=== PATIENT | female | born 1960 | race African-American/Black ===

== ENCOUNTER → 2017-01-11 | Outpatient (CLI) | payer BC ==
[~2017-01-11] MED LIST: ERYTHROMYCIN E3.5 G1 OPHTHALMIC; GLUCOPHAGE XR500 MG PO; LEVOTHYROXIN0.075 MG PO
== END ==
LOC: RAD 12-15 03:45 → BC 05:48
DX: Z12.31 Encounter for screening mammogram for malignant neoplasm of breast (principal)

== ENCOUNTER 2017-06-12 16:27 | Emergency (ER) | payer BC ==
[~2017-06-12] VITALS: Ht 160 cm; Wt 82.6 kg
[2017-06-12 17:59] VITALS: BP 123/61
== END 2017-06-12 18:00 | disposition home or self-care (01) ==
LOC: ER 16:27
DX: M25.561 Pain in right knee (principal); I10 Essential (primary) hypertension; E11.9 Type 2 diabetes mellitus without complications; E03.9 Hypothyroidism, unspecified; Z88.6 Allergy status to analgesic agent; Z96.651 Presence of right artificial knee joint

== ENCOUNTER → 2018-01-31 | Outpatient (CLI) | payer BC | LOC: RAD 01:24 | DX: Z12.31 Encounter for screening mammogram for malignant neoplasm of breast (principal) ==

== ENCOUNTER 2018-09-02 07:05 | Emergency (ER) | payer BC ==
[~2018-09-02] VITALS: Ht 160 cm; Wt 79.8 kg
[2018-09-02] MEDS ORDERED: ROBAXIN500 MG PO (09:44)
[2018-09-02] MEDS ORDERED: NORCO 5-325 TA1 EAC1 PO (09:44)
[2018-09-02 09:45] VITALS: BP 111/57
== END 2018-09-02 09:45 | disposition home or self-care (01) ==
LOC: ER 07:05
DX: S01.81XA Laceration without foreign body of other part of head, initial encounter (principal); I10 Essential (primary) hypertension; E03.9 Hypothyroidism, unspecified; E11.9 Type 2 diabetes mellitus without complications; Z96.651 Presence of right artificial knee joint; Z88.8 Allergy status to other drugs, medicaments and biological substances; Z88.6 Allergy status to analgesic agent; V89.2XXA Person injured in unspecified motor-vehicle accident, traffic, initial encounter; Y92.89 Other specified places as the place of occurrence of the external cause; Y93.89 Activity, other specified; Y99.8 Other external cause status

== ENCOUNTER 2018-09-05 16:15 | Emergency (ER) | payer BC ==
[~2018-09-05] VITALS: Ht 167.6 cm; Wt 61.7 kg
[~2018-09-05 16:15] MED LIST changes: +NORCO 5-325 TA1 EAC1 PO; +ROBAXIN500 MG PO
[2018-09-05 16:34] VITALS: BP 137/77
== END 2018-09-05 18:26 | disposition home or self-care (01) ==
LOC: ER 16:15
DX: Z48.00 Encounter for change or removal of nonsurgical wound dressing (principal)

== ENCOUNTER → 2019-03-06 | Outpatient (CLI) | payer BC | LOC: BC 08:36 | DX: Z12.31 Encounter for screening mammogram for malignant neoplasm of breast (principal) ==

== ENCOUNTER 2019-08-25 09:01 | Emergency (ER) | payer BC ==
[~2019-08-25] VITALS: Ht 160 cm; Wt 86.2 kg
[2019-08-25 10:20] LABS: HEMATOCRIT 32.1 % (37.0-47.0); HEMOGLOBIN 10.5 gm/dL (12.0-15.0); MCH 28.4 pg (26.0-34.0); MCHC 32.7 g/dL (28.0-37.0); PLATELET COUNT 260 thou/uL (150-400); RBC 3.69 mil/uL (4.20-5.00); RDW 19.3 % (10.5-14.5); WBC 12.6 thou/uL (4.0-11.0)
[2019-08-25 10:32] LABS: APTT 29.9 Seconds (24.5-32.8); PROTIME 10.7 Seconds (9.3-11.4)
[2019-08-25 10:35] LABS: ABSOLUTE NEUTROPHILS 10.8 thou/uL (1.4-8.2); PLATELET ESTIMATE NORMAL
[2019-08-25 10:36] LABS: ANISOCYTOSIS 1+
[2019-08-25 11:04] LABS: URINE BLOOD 1+ (Negative); URINE CLARITY CLOUDY; URINE COLOR YELLOW; URINE GLUCOSE-RANDOM* NEGATIVE (Negative); URINE KETONES 2+ (Negative); URINE LEUKOCYTES-REFLEX NEGATIVE (Negative); URINE NITRITE-REFLEX NEGATIVE (Negative); URINE PROTEIN (DIPSTICK) 2+ (Negative); URINE SPECIFIC GRAVITY >= 1.030 (1.005-1.035); URINE UROBILINOGEN 0.2 E.U./dl (0.2-1.0)
[2019-08-25 11:10] LABS: ICTOTEST (BILI CONFIRMATORY) Negative (Negative); URINE BILIRUBIN NEGATIVE (Negative)
[2019-08-25 11:24] LABS: AMORPHOUS URATES Moderate /LPF (None Seen); BACTERIA-REFLEX 1-9 Few /HPF (None Seen); CASTS None Seen /LPF (None Seen); MUCUS 0-3 Light strn/LPF (None Seen); SQUAMOUS None Seen /LPF (0-3); URINE RBC 0-2 Rare /HPF (0-2); URINE WBC-REFLEX None Seen /HPF (0-5)
[2019-08-25 11:59] LABS: ANION GAP 12 mmol/L (7-16); BUN 8 mg/dL (7-18); CALCIUM 8.6 mg/dL (8.5-10.1); CHLORIDE 95 mmol/L (98-107); CO2 24 mmol/L (21-32); GLUCOSE 211 mg/dL (74-106); SODIUM 131 mmol/L (136-145)
[2019-08-25 12:01] LABS: POTASSIUM 2.9 mmol/L (3.5-5.1)
[2019-08-25 12:05] LABS: ALBUMIN 2.9 g/dL (3.4-5.0); MAGNESIUM 1.8 mg/dL (1.8-2.4); SGOT 13 U/L (15-37); SGPT 15 U/L (30-65); TOTAL BILIRUBIN 0.4 mg/dL (0.2-1.0); TOTAL PROTEIN 7.3 g/dL (6.4-8.2); TROPONIN-I <0.06 ng/mL (<0.06)
[2019-08-25] MEDS ORDERED: POTASSIUM20 PO (13:10)
[2019-08-25 15:05] VITALS: BP 131/106
--- NOTE | 2019-08-25 15:54 | EKG ---
[facility] [place] [address] ELECTROCARDIOGRAM REPORT Name: RUBY FRANK Room #: DEP [facility]#: [id number] Admission: 08/25/19 Attend Phys: Discharge: 08/25/19 Date of : 56 Report #: [id number] THIS REPORT FOR: cc: FAM - Family physician unknown FAM - Family physician unknown Ap Davies MD [facility] THIS REPORT FOR: //name// [facility] ED Test Date: 2019-08-25 Test Time: 11:16:43 Pat Name: RUBY FRANK Department: Room: Gender: Director Strategy: [facility] : 1960 Requested By: Norbert Maldonado Order Number: [id number] MD: Ap Davies Measurements Intervals [place] Rate: 102 P: 31 OR: 126 QRS: 32 QRSD: 73 T: 13 QT: 358 QTc: 467 Interpretive Statements Sinus tachycardia Nonspecific ST and T wave abnormality Compared to ECG 04/22/2000 11:03:18 ST and T-wave abnormality now present Sinus bradycardia no longer present Electronically Signed On 08-25-2019 15:54:36 CDT by Ap Davies [email or web address] <ELECTRONICALLY SIGNED> By: Ap Davies MD, [facility] 08/25/19 1554 1116 [id number] Ap Davies MD, [facility] /EPI
== END 2019-08-25 15:05 | disposition home or self-care (01) ==
LOC: ER 09:01
PROVIDERS: Emergency Medicine
DX: R50.9 Fever, unspecified (principal); Z20.828 Contact with and (suspected) exposure to other viral communicable diseases; E03.9 Hypothyroidism, unspecified; I10 Essential (primary) hypertension; D64.9 Anemia, unspecified; J45.909 Unspecified asthma, uncomplicated; E88.09 Other disorders of plasma-protein metabolism, not elsewhere classified; E87.6 Hypokalemia; E11.9 Type 2 diabetes mellitus without complications; R42 Dizziness and giddiness; E66.9 Obesity, unspecified; Z88.1 Allergy status to other antibiotic agents; Z88.6 Allergy status to analgesic agent; Z79.899 Other long term (current) drug therapy

== ENCOUNTER → 2019-08-30 | Outpatient (CLI) | payer BC ==
[~2019-08-30] MED LIST changes: +ALTACE10 MG PO; +ASA81BEC PO; +B12 ACTIVE1000 MCG PO; +BENZONATATE200 MG PO; +BUSPAR30 MG PO; +CETIRIZINE HCL5 MG PO; +CINNAMON500 MG PO; +CLORAZEPATE DI7.5 M3 PO; +COQ-10100 MG PO; +CYPROHEPTAD2 MG/5 ML PO; +DESYREL150 MG PO; +FOLIC ACID1 MG PO; +LEVAQUIN 750 M750 MG PO; +MUCINEX600 MG PO; +POTASSIUM20 PO; +PROAIR HFA8.5 GM INH; +PROBIOTIC1 EAC7 PO; +PROTONIX40 M2 PO; +SERTRALINE HCL100 MG PO; +SIMVASTATIN80 MG PO; +SINGULAIR 10 MG10 M1 PO; +SYNTHROID100 MC1 PO; +VALACYCLOVIR500 MG PO
== END ==
LOC: LAB 11:38
PROVIDERS: ATTEND Nurse Practitioner
DX: R50.9 Fever, unspecified (principal); R06.02 Shortness of breath; R05 Cough; R53.83 Other fatigue; Z20.828 Contact with and (suspected) exposure to other viral communicable diseases

== ENCOUNTER 2019-09-01 21:32 | Inpatient (IN) | payer BC ==
[~2019-09-01] VITALS: Ht 160 cm; Wt 88.9 kg
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
[~2019-09-01 21:32] MED LIST changes: -ALTACE10 MG PO; -ASA81BEC PO; -B12 ACTIVE1000 MCG PO; -BENZONATATE200 MG PO; -BUSPAR30 MG PO; -CETIRIZINE HCL5 MG PO; -CINNAMON500 MG PO; -CLORAZEPATE DI7.5 M3 PO; -COQ-10100 MG PO; -CYPROHEPTAD2 MG/5 ML PO; -DESYREL150 MG PO; -FOLIC ACID1 MG PO; -LEVAQUIN 750 M750 MG PO; -MUCINEX600 MG PO; -PROAIR HFA8.5 GM INH; -PROBIOTIC1 EAC7 PO; -PROTONIX40 M2 PO; -SERTRALINE HCL100 MG PO; -SIMVASTATIN80 MG PO; -SINGULAIR 10 MG10 M1 PO; -SYNTHROID100 MC1 PO; -VALACYCLOVIR500 MG PO
[2019-09-01 21:35] VITALS: BP 123/75
[2019-09-01 23:35] LABS: ABSOLUTE NEUTROPHILS 6.8 thou/uL (1.4-8.2); BASOPHILS 0.8 % (0.0-2.0); EOSINOPHILS 0.8 % (0.0-3.0); HEMOGLOBIN 9.7 gm/dL (12.0-15.0); LYMPHOCYTES 12.6 % (24.0-44.0); MCH 28.6 pg (26.0-34.0); MCHC 33.4 g/dL (28.0-37.0); MCV 85.7 fL (80.0-100.0); MONOCYTES 8.6 % (1.0-8.0); PLATELET COUNT 455 thou/uL (150-400); POLYS 77.2 % (36.0-66.0); RBC 3.39 mil/uL (4.20-5.00); RDW 19.8 % (10.5-14.5); WBC 8.8 thou/uL (4.0-11.0)
[2019-09-01 23:56] LABS: ALBUMIN 2.3 g/dL (3.4-5.0); ANION GAP 11 mmol/L (7-16); BUN 15 mg/dL (7-18); CALCIUM 9.1 mg/dL (8.5-10.1); CHLORIDE 93 mmol/L (98-107); CO2 28 mmol/L (21-32); GLUCOSE 180 mg/dL (74-106); MAGNESIUM 2.4 mg/dL (1.8-2.4); SGOT 289 U/L (15-37); SGPT 168 U/L (30-65); SODIUM 132 mmol/L (136-145); TOTAL BILIRUBIN 0.5 mg/dL (0.2-1.0); TROPONIN-I <0.06 ng/mL (<0.06)
[2019-09-01 23:58] LABS: POTASSIUM 2.6 mmol/L (3.5-5.1)
[2019-09-02] VITALS (7 sets, daily range): BP systolic 129–165; BP diastolic 41–79
[2019-09-02 00:36] LABS: URINE BILIRUBIN 1+ (Negative); URINE BLOOD NEGATIVE (Negative); URINE CLARITY CLEAR; URINE COLOR YELLOW; URINE GLUCOSE-RANDOM* NEGATIVE (Negative); URINE KETONES 1+ (Negative); URINE LEUKOCYTES-REFLEX NEGATIVE (Negative); URINE NITRITE-REFLEX NEGATIVE (Negative); URINE PROTEIN (DIPSTICK) 2+ (Negative); URINE SPECIFIC GRAVITY 1.025 (1.005-1.035); URINE UROBILINOGEN 0.2 E.U./dl (0.2-1.0)
[2019-09-02 00:40] LABS: ICTOTEST (BILI CONFIRMATORY) Positive (Negative)
[2019-09-02 00:42] LABS: BACTERIA-REFLEX 1-9 Few /HPF (None Seen); CRYSTALS None Seen /LPF (None Seen); HYALINE CASTS 0-3 Few /LPF (None Seen); MUCUS 4-6 Moderate strn/LPF (None Seen); SQUAMOUS 4-10 Moderate /LPF (0-3); TRANSITIONAL EPITHEL CELL 0-3 Few /LPF (None Seen); URINE RBC None Seen /HPF (0-2); URINE WBC-REFLEX 0-5 Rare /HPF (0-5)
[2019-09-02 00:53] LABS: APTT 32.3 Seconds (24.5-32.8); D-DIMER 2.59 ug/mLFEU (0.19-0.50); INR 1.1; PROTIME 11.5 Seconds (9.3-11.4)
--- NOTE | 2019-09-02 05:36 | NUR ---
REPORT GIVEN TO NURSE ON 3 FLOOR
[2019-09-02] MEDS ORDERED: SYNTHROID100 MC1 PO (05:42)
[2019-09-02 05:58] LABS: HEMATOCRIT 28.5 % (37.0-47.0); HEMOGLOBIN 9.4 gm/dL (12.0-15.0); MCH 28.5 pg (26.0-34.0); MCV 86.5 fL (80.0-100.0); RBC 3.29 mil/uL (4.20-5.00); RDW 20.5 % (10.5-14.5); WBC 8.8 thou/uL (4.0-11.0)
[2019-09-02 09:58] LABS: CALCIUM 8.2 mg/dL (8.5-10.1); CREATININE 0.8 mg/dL (0.6-1.0)
[2019-09-02 10:06] LABS: POTASSIUM 6.9 mmol/L (3.5-5.1)
[2019-09-02 10:20] LABS: CHOLESTEROL 122 mg/dL (<200); HDL CHOLESTEROL 12 mg/dL (>40); LDL CHOLESTEROL 82 mg/dL (<100); TC:HDL 10.2 Ratio (Not establshd); TRIGLYCERIDE 143 mg/dL (<150); VLDL 29 mg/dL (<40)
--- NOTE | 2019-09-02 16:28 | NUR ---
PT CARE ASSUMED APPROX 0700. ASSESSMENT CHARTED. PT DENIES PAIN AND SOA. VSS. UP WITH STEADY GAIT. PT TOLERATING POC. PT DENIES QUESTIONS OR CONCERNS REGARDING POC. NO DISTRESS NOTED.
[2019-09-03 04:00] VITALS: BP 140/59
[2019-09-03 04:54] LABS: HEMOGLOBIN 8.5 gm/dL (12.0-15.0); MCH 28.4 pg (26.0-34.0); MCHC 32.6 g/dL (28.0-37.0); RBC 2.99 mil/uL (4.20-5.00); RDW 20.6 % (10.5-14.5); WBC 7.5 thou/uL (4.0-11.0)
[2019-09-03 05:04] LABS: CALCIUM 8.6 mg/dL (8.5-10.1); CREATININE 0.9 mg/dL (0.6-1.0); POTASSIUM 3.4 mmol/L (3.5-5.1); TOTAL BILIRUBIN 0.5 mg/dL (0.2-1.0); TOTAL PROTEIN 7.1 g/dL (6.4-8.2)
[2019-09-03 05:38] LABS: GLYCOHEMOGLOBIN (HGB A1C) 7.2 % (4.8-5.6)
[2019-09-03 07:08] LABS: HAV IgM AB (ANTI-HAV IgM) Negative (Negative); HEPATITIS B SURFACE AG Negative (Negative); HEPATITIS C VIRUS AB 0.1 (0.0-0.9)
[2019-09-03 07:10] VITALS: BP 154/74
--- NOTE | 2019-09-03 07:38 | NUR ---
ASSUME CARE 1900. PT/VITALS STABLE. DENIES ANY PAIN. TOLERATES ACTIVITY WELL. ASSESSMENT CHARTED. SR ON MONITOR. NO DISTRESS NOTED. PT IS CONCERNED ABOUT ELEVATED LFTs. ABDO ORDERED. GI CONSULT. WILL FOLLOW WITH POC
[2019-09-03 11:15] VITALS: BP 141/102
[2019-09-03] MEDS ORDERED: CYPROHEPTAD2 MG/5 ML PO (11:50)
[2019-09-03] MEDS ORDERED: CINNAMON500 MG PO (11:56)
[2019-09-03] MEDS ORDERED: COQ-10100 MG PO (11:57)
[2019-09-03] MEDS ORDERED: B12 ACTIVE1000 MCG PO (12:00)
[2019-09-03] MEDS ORDERED: VALACYCLOVIR500 MG PO (12:00)
[2019-09-03] MEDS ORDERED: CETIRIZINE HCL5 MG PO (12:02)
[2019-09-03] MEDS ORDERED: BENZONATATE200 MG PO (12:02)
[2019-09-03] MEDS ORDERED: PROBIOTIC1 EAC7 PO (12:04)
[2019-09-03] MEDS ORDERED: PROAIR HFA8.5 GM INH (12:04)
[2019-09-03] MEDS ORDERED: FOLIC ACID1 MG PO ×2 (12:05→12:06)
[2019-09-03] MEDS ORDERED: PROTONIX40 M2 PO (12:07)
[2019-09-03] MEDS ORDERED: ALTACE10 MG PO (12:07)
[2019-09-03] MEDS ORDERED: DESYREL150 MG PO (12:08)
[2019-09-03] MEDS ORDERED: SINGULAIR 10 MG10 M1 PO (12:09)
[2019-09-03] MEDS ORDERED: ASA81BEC PO (12:09)
[2019-09-03] MEDS ORDERED: SERTRALINE HCL100 MG PO (12:09)
[2019-09-03] MEDS ORDERED: BUSPAR30 MG PO (12:09)
[2019-09-03] MEDS ORDERED: CLORAZEPATE DI7.5 M3 PO (12:10)
[2019-09-03] MEDS ORDERED: SIMVASTATIN80 MG PO (12:12)
[2019-09-03 15:15] VITALS: BP 145/67
--- NOTE | 2019-09-03 16:38 | NUR ---
PT CARE ASSUMED APPROX 0700. ASSESSMENT CHARTED. PT DENIES PAIN AND SOA. APPEARS SOA N RETURN FROM B/R. VSS. UP WITH STEADY GAIT. NO ORDERS FROM GI DR TODAY. ONLY TO MONITOR. STOOL SAMPLE UNCOLLECTED AT THIS TIME. PT TOLERATING POC. NO DISTRESS NOTED.
[2019-09-03 19:05] VITALS: BP 160/61
--- NOTE | 2019-09-04 00:38 | NUR ---
PATIENTS CARES WERE ASSUMED AT SHIFT CHANGE. PAIIENT WAS ASSESSED AND MEDS WERE PASSED. PATIENT REVEALED DURING OUR VISIT THIS SHIFT THAT HER OF TWENTY-SEVEN YEARS LEFT HER FOR ANOTHER WOMAN. WE TALKED ABOUT COUNSELING. PATIENT DID RESPOND THAT SHE HAD FIVE VISITS. SHE FINISHED THEM AN CAN NOT SEE COUNSELER FOR THE SAME REASON. NURSING SUGGESTED TO REQUEST ANOTHE FIVE VISITS FOR COPING SKILL ISSUE INSTEAD OF A NEW DIVORCE. MELATONIN GIVEN TO HELP HER S;EEP. HOURLY ROUNDS WERE DONE, THE BED IS IN A LOW AND LOCKED POSITION
[2019-09-04 04:53] VITALS: BP 154/71
[2019-09-04 05:19] LABS: CALCIUM 8.8 mg/dL (8.5-10.1); CREATININE 0.8 mg/dL (0.6-1.0); MAGNESIUM 1.9 mg/dL (1.8-2.4); POTASSIUM 3.3 mmol/L (3.5-5.1)
[2019-09-04 05:37] LABS: HEMATOCRIT 26.9 % (37.0-47.0); HEMOGLOBIN 8.7 gm/dL (12.0-15.0); MCH 28.8 pg (26.0-34.0); MCHC 32.5 g/dL (28.0-37.0); MCV 88.6 fL (80.0-100.0); RBC 3.04 mil/uL (4.20-5.00); RDW 20.7 % (10.5-14.5); WBC 6.5 thou/uL (4.0-11.0)
[2019-09-04 05:42] LABS: PLATELET COUNT 576 thou/uL (150-400)
[2019-09-04 07:20] VITALS: BP 151/75
--- NOTE | 2019-09-04 08:03 | EKG ---
[facility] [place] [address] ELECTROCARDIOGRAM REPORT Name: RUBY FRANK Room #: 201-P ADM IN M.R.#: [id number] Admission: 09/02/19 Attend Phys: Jaime Oro MD Discharge: Date of : 56 Report #: [id number] THIS REPORT FOR: cc: Letitia Caraballo DNP, Mary E. DNP Lundgren, Craig H. MD [facility] ~ THIS REPORT FOR: //name// [facility] ED Test Date: 2019-09-01 Test Time: 23:25:41 Pat Name: RUBY FRANK Department: Room: 201 Gender: F [employer] M[employer]: raudel : 1960 Requested By: Norbert Maldonado Order Number: [id number] MD: Ap Davies Measurements Intervals [place] Rate: 87 P: 59 MT: 142 QRS: 16 QRSD: 85 T: 14 QT: 354 QTc: 426 Interpretive Statements Sinus rhythm Nonspecific ST segment abnormality Compared to ECG 08/25/2019 11:16:43 Sinus tachycardia no longer present Electronically Signed On 09-04-2019 8:03:05 CDT by Ap Davies [email or web address] <ELECTRONICALLY SIGNED> By: pA Davies MD, [facility] 09/04/19 0803 [id number] [id number] Ap Davies MD, [facility] /EPI
[2019-09-04 08:35] LABS: ABSOLUTE NEUTROPHILS 4.6 thou/uL (1.4-8.2); PLATELET ESTIMATE NORMAL
[2019-09-04 11:15] VITALS: BP 150/81
[2019-09-04 15:35] VITALS: BP 152/79
[2019-09-04] MEDS ORDERED: MUCINEX600 MG PO (15:42)
[2019-09-04] MEDS ORDERED: LEVAQUIN 750 M750 MG PO (15:42)
[2019-09-04 16:22] VITALS: BP 150/81
--- NOTE | 2019-09-04 16:35 | NUR ---
PT CARE ASSUMED APPROX 0700. ASSESSMENT CHARTED. PT DENIES PAIN AND SOA AT THIS TIME. VSS. PT AGREEABLE TO DISCHARGE. DR GTZ ROUNDED AND EDUCATED PT ON DISCHARGE. DISCHARGE EDUCATION AND PAPERWORK REVIEWED WITH PT BY THIS NURSE. SHE DENIES QUESTIONS OR CONCERNS REGARDING [facility]. IV OUT, TELE OFF. WILL ESCORT PT OUT TIMELY.
--- NOTE | 2019-09-04 17:09 | NUR ---
PT ESCORTED OUT WITHOUT ISSUE
== END 2019-09-04 17:09 | disposition home or self-care (01) | DRG 871 ==
LOC: ER 21:32 → 2N 09-02 02:40 → EROBS 09-02 02:40 → 2N 09-02 07:32
PROVIDERS: Emergency Medicine; Nurse Practitioner Family; ADMIT Internal Medicine; ATTEND Internal Medicine
DX: A41.9 Sepsis, unspecified organism (principal); J18.9 Pneumonia, unspecified organism; E03.9 Hypothyroidism, unspecified; I10 Essential (primary) hypertension; D64.9 Anemia, unspecified; E11.65 Type 2 diabetes mellitus with hyperglycemia; E87.6 Hypokalemia; B34.9 Viral infection, unspecified; K76.0 Fatty (change of) liver, not elsewhere classified; E78.5 Hyperlipidemia, unspecified; F41.9 Anxiety disorder, unspecified; R74.0 Nonspecific elevation of levels of transaminase and lactic acid dehydrogenase [LDH]; Z96.652 Presence of left artificial knee joint; E66.01 Morbid (severe) obesity due to excess calories; Z79.84 Long term (current) use of oral hypoglycemic drugs; Z79.899 Other long term (current) drug therapy; Z88.1 Allergy status to other antibiotic agents; Z88.8 Allergy status to other drugs, medicaments and biological substances; Z68.34 Body mass index [BMI] 34.0-34.9, adult
CPT/HCPCS: 10081

== ENCOUNTER → 2019-10-02 | Outpatient (CLI) | payer BC ==
[~2019-10-02] MED LIST changes: +ALTACE10 MG PO; +ASA81BEC PO; +B12 ACTIVE1000 MCG PO; +BENZONATATE200 MG PO; +BUSPAR30 MG PO; +CETIRIZINE HCL5 MG PO; +CINNAMON500 MG PO; +CLORAZEPATE DI7.5 M3 PO; +COQ-10100 MG PO; +CYPROHEPTAD2 MG/5 ML PO; +DESYREL150 MG PO; +FOLIC ACID1 MG PO; +LEVAQUIN 750 M750 MG PO; +MUCINEX600 MG PO; +PROAIR HFA8.5 GM INH; +PROBIOTIC1 EAC7 PO; +PROTONIX40 M2 PO; +SERTRALINE HCL100 MG PO; +SIMVASTATIN80 MG PO; +SINGULAIR 10 MG10 M1 PO; +SYNTHROID100 MC1 PO; +VALACYCLOVIR500 MG PO
== END ==
LOC: RAD 09:48
PROVIDERS: ATTEND Nurse Practitioner
DX: J84.10 Pulmonary fibrosis, unspecified (principal); R91.8 Other nonspecific abnormal finding of lung field; J18.9 Pneumonia, unspecified organism

== ENCOUNTER → 2019-10-12 | Outpatient (CLI) | payer BC, OTHER | LOC: NUC 08:00 | PROVIDERS: ATTEND Nurse Practitioner | DX: R14.0 Abdominal distension (gaseous) (principal) ==

== ENCOUNTER 2019-10-17 11:47 | Emergency (ER) | payer OTHER, BC ==
[~2019-10-17] VITALS: Ht 160 cm; Wt 86.2 kg
[2019-10-17 14:45] VITALS: BP 129/63
== END 2019-10-17 14:45 | disposition home or self-care (01) ==
LOC: ER 11:47
DX: T78.40XA Allergy, unspecified, initial encounter (principal); E03.9 Hypothyroidism, unspecified; I10 Essential (primary) hypertension; E11.9 Type 2 diabetes mellitus without complications; E78.5 Hyperlipidemia, unspecified; Z79.899 Other long term (current) drug therapy; Z79.82 Long term (current) use of aspirin; Z88.8 Allergy status to other drugs, medicaments and biological substances; Y92.89 Other specified places as the place of occurrence of the external cause

== ENCOUNTER → 2020-03-19 | Outpatient (CLI) | payer OTHER, BC | LOC: LAB 14:54 | PROVIDERS: ATTEND Nurse Practitioner | DX: R05 Cough (principal); R43.9 Unspecified disturbances of smell and taste; Z20.822 Contact with and (suspected) exposure to COVID-19 ==

== ENCOUNTER → 2020-03-19 | Outpatient (CLI) | payer OTHER, BC | LOC: RAD 13:46 | PROVIDERS: ATTEND Nurse Practitioner | DX: Z12.31 Encounter for screening mammogram for malignant neoplasm of breast (principal) ==